=== PATIENT | female | born 1990 | race Caucasian/White ===

== ENCOUNTER 2022-09-14 22:24 | Observation (INO) ==
[2022-09-15] MEDS ORDERED: MoRPHine SULFATE 4 MG/ML 1 ML CARP\\VIAL IV STA (00:04)
[2022-09-15] MEDS ORDERED: ONDANSETRON INJ 2 MG/ML 2 ML VIAL IV STA (00:04)
[2022-09-15] MEDS: MoRPHine SULFATE 4 MG/ML 1 ML CARP\\VIAL IV PRN ×5 (00:51→18:21)
[2022-09-15] MEDS ORDERED: diphenhydrAMINE 50 MG/ML VIAL IV PRN (00:58)
[2022-09-15] MEDS ORDERED: ONDANSETRON INJ 2 MG/ML 2 ML VIAL IV PRN ×2 (00:58→11:56)
[2022-09-15 00:59] LABS: Basophils # (auto) 0.03 K/uL (0-0.2); Basophils % (auto) 0.3 %; Eosinophils # (auto) 0.02 K/uL (0-0.50); Eosinophils % (auto) 0.2 %; Hematocrit (blood only) 41.2 % (37.0-47.0); Hemoglobin 13.9 g/dl (12.0-16.0); Immature Granulocytes # (auto) 0.03 K/uL (0.01-0.20); Immature Granulocytes % (auto) 0.3 %; Lymphocytes # (auto) 1.58 K/uL (1.2-3.4); Mean Corpuscular Hgb Conc 33.7 g/dL (32.0-36.0); Mean Platelet Volume 9.7 fL (9.4-12.4); Monocytes # (auto) 0.49 K/uL (0.11-0.59); Monocytes % (auto) 4.3 %; Neutrophils # (auto) 9.15 K/uL (1.40-6.50); Neutrophils % (auto) 80.9 %; Platelet Count 214 K/uL (130-400); RDW Coefficient of Variation 13.7 % (11.5-14.5); RDW Standard Deviation 42.7 fL (36.4-46.3); Red Blood Count 4.79 M/uL (4.20-5.40)
[2022-09-15] MEDS ORDERED: HYDROmorphone INJ 0.5 MG/0.5 ML SYR IV PRN (01:03)
[2022-09-15 01:05] LABS: Albumin Globulin Ratio 1.4 (0.9-2); Albumin Level 4.6 gm/dl (3.4-5.0); BUN Creatinine Ratio 11.6 (10-20); Bilirubin,Total 0.3 mg/dl (0.2-1.0); Calcium 9.3 mg/dl (8.5-10.1); Creatinine Clr Calc Pharmacy 89.5 ml/min; Est GFR (African American) 105.1 ml/min; Est GFR (Non-African American) 90.7 ml/min; Globulin 3.3 gm/dl (2.5-4.0); Potassium 3.9 mmol/L (3.5-5.1); Total Protein 7.9 gm/dl (6.0-8.3)
[2022-09-15] MEDS ORDERED: Patient's ALLERGY Info needs ENTERED STA (01:22)
[2022-09-15] MEDS ORDERED: LORazepam 2 MG/1 ML VIAL ONE (01:43)
[2022-09-15] MEDS ORDERED: LORazepam 2 MG/1 ML VIAL IV STA (02:03)
--- NOTE | 2022-09-15 02:11 | Emergency Department Note ---
History of Present Illness General Chief complaint: Ankle Pain Stated complaint: ankle pain Time Seen by Provider: 09/14/22 23:50 History of Present Illness Maximum Pain Intensity: 6 This is a 31-year-old female presenting to the emergency department via EMS for evaluation of right ankle injury. The patient was at [facility], and was on a skateboard. The patient states that she was going up the incline of the ramp when the skateboard went out from under her. She fell awkwardly and twisted her foot as she hit the ground. She felt a crack sensation in her leg and was not able to bear weight. She does not have any blood or bleeding. Feeling is intact and she rates her discomfort a 6/10. Patient lives in [facility], and has not seen orthopedics in the past. She is usually healthy without chronic medical disease. She is not on blood thinners. No significant pain of the right knee or right hip. Allergies Allergy/AdvReac Type Severity Reaction Status Date / Time Penicillins AdvReac Rash Verified 09/15/22 03:16 Past Med/Surg History Medical History No chronic diseases present Surgical History No significant past surgical history Social History Smoking Status: Never smoker Hx Alcohol Use: Yes Hx Substance Use: No Preferred Language: Armenian Communication Ability: Effective Databases Computer Consultant Required: No Beliefs That Will Affect Care: None Current Living Situation: Spouse and Family Current Living Situation Comment: , in laws, kids Other Information That Helps Us Care for You: No Feels Safe at Home: Yes Safety Concerns: Feels Safe At This Time Assistive Devices: None Review of Systems A total of 10 systems reviewed and were otherwise negative Physical Exam Vital Signs Vital Signs - 24 hr 09/14/22 22:08 Temperature 36.8 C Temperature Source Oral Pulse Rate 87 Respiratory Rate 18 Respiratory Effort / Characteristics Non-Labored Respiratory Depth Normal Blood Pressure 129/80 Blood Pressure Mean 96 Blood Pressure Position Sitting Pulse Oximetry 100 Oxygen Delivery Method Room Air Sepsis Recent Fever Within 48 Hours No Sepsis New/Unexplained Change in Mental Status N/A Sepsis Action Taken by Nursing No Action Required VITALS: Vitals are noted on the nurse's note and reviewed by myself. Vital signs stable. GENERAL: Well-developed, well-nourished, white female, who is quite upset and tearful. She appears quite uncomfortable. She is overall cooperative. HEAD: Normocephalic atraumatic. NECK: Supple without nuchal rigidity. No lymphadenopathy. No thyromegaly. Cervical spine is nontender. HEART: Regular rate and rhythm without murmurs gallops or rubs. LUNGS: Clear to auscultation bilaterally without wheezes, rales or rhonchi. No retractions or accessory muscle use. MUSCULOSKELETAL: No muscle atrophy, erythema, or edema noted. Limited range of motion to the right lower extremity secondary to patient's discomfort. No gross deformity, laceration, blood, or bleeding. Neurovascular status appears intact distally. Exam is somewhat limited throughout the lower leg. She does have reported sensation intact to the toes and is able to move the foot. NEURO: Patient was alert and oriented to person place and time. CN II through XII grossly intact. No focal neurological deficits. SKIN: The skin was without rashes, erythema, edema, or bruising. Capillary refill less than 2 seconds. Course Administered Medications Acetaminophen (Acetaminophen 500 Mg Tab) 1,000 mg PO Q8 [facility] Stop: 10/15/22 05:59 Last Admin: 09/15/22 13:17 Dose: Not Given Documented By: Admin: 09/15/22 06:18 Dose: 1,000 mg Documented By: DIETER Ascorbic Acid (Ascorbic Acid 500 Mg Tab) 500 mg PO BIDM [facility] Stop: 10/15/22 16:59 Last Admin: 09/15/22 17:27 Dose: Not Given Documented By: WALLY Aspirin (Aspirin 325 Mg Ectab) 325 mg PO DAILY [facility] Stop: 10/15/22 17:14 Last Admin: 09/15/22 17:30 Dose: Not Given Documented By: WALLY Diazepam (Diazepam 2 Mg Tablet) 2 mg PO BID PRN PRN Reason: Muscle Spasm Stop: 10/15/22 01:02 Last Admin: 09/15/22 07:17 Dose: 2 mg Documented By: DIETER Sodium Chloride (Nss 1000ml) 1,000 mls @ 100 mls/hr IV .Q10H [facility] Stop: 09/16/22 06:00 Last Admin: 09/15/22 16:49 Dose: 100 mls/hr Documented By: WALLY Ketorolac Tromethamine (Ketorolac Tromethamine 15 Mg/Ml Vial) 15 mg IV Q6H NGOZI Stop: 09/16/22 12:01 Last Admin: 09/15/22 17:50 Dose: 15 mg Documented By: WALLY Morphine Sulfate (Morphine Sulfate 4 Mg/Ml 1 Ml Carp\Vial) 4 mg IV Q3H PRN PRN Reason: Pain Stop: 09/29/22 06:46 Last Admin: 09/15/22 18:21 Dose: 4 mg Documented By: Admin: 09/15/22 10:11 Dose: 4 mg Documented By: WALLY Oxycodone HCl (Oxycodone Hcl Ir 5 Mg Tab (Immediate Release)) 10 mg PO Q4H PRN PRN Reason: SEVERE Pain (7,8,9,10) Stop: 09/29/22 01:02 Last Admin: 09/15/22 20:17 Dose: 10 mg Documented By: Admin: 09/15/22 08:25 Dose: 10 mg Documented By: Admin: 09/15/22 03:57 Dose: 10 mg Documented By: DIETER Discontinued Medications Fentanyl Citrate (Fentanyl Citrate 100 Mcg/2 Ml Vial) 25 mcg IV Q5M PRN PRN Reason: PACU Use Only-Pain Stop: 09/15/22 19:56 Last Admin: 09/15/22 16:06 Dose: 25 mcg Documented By: QUINTON Hydromorphone HCl (Hydromorphone Inj 0.5 Mg/0.5 Ml Syr) 0.5 mg IV Q3H PRN PRN Reason: Pain (6,7,8,9,10) Stop: 09/29/22 01:02 Last Admin: 09/15/22 06:15 Dose: 0.5 mg Documented By: Admin: 09/15/22 03:36 Dose: 0.5 mg Documented By: DIETER Cefazolin Sodium (Ancef 2000mg) 2,000 mg in 15 mls @ 3.75 mls/min IV PREOP NGOZI; Protocol Stop: 09/15/22 11:03 Last Admin: 09/15/22 11:59 Dose: 3.75 mls/min Documented By: FLORES Promethazine HCl 12.5 mg/ (Sodium Chloride) 50.5 mls @ 204 mls/hr IV ONCE PRN PRN Reason: PACU Use Only-Nausea/Vomiting Stop: 09/15/22 19:56 Last Infusion: 09/15/22 16:49 Dose: 0 mls/hr Documented By: Admin: 09/15/22 16:01 Dose: 204 mls/hr Documented By: QUINTON Lorazepam (Lorazepam 2 Mg/1 Ml Vial) Confirm Administered Dose 2 mg .ROUTE .STK- MED ONE Stop: 09/15/22 01:44 Last Admin: 09/15/22 01:40 Dose: 1 mg Documented By: MELY Lorazepam (Lorazepam 2 Mg/1 Ml Vial) 1 mg IV NOW STA Stop: 09/15/22 02:04 Last Admin: 09/15/22 02:23 Dose: Not Given Documented By: MELY Miscellaneous Information (Patient's Allergy Info Needs Entered) 1 each N/A ONE STA Stop: 09/15/22 01:23 Last Admin: 09/15/22 03:17 Dose: 1 each Documented By: DIETER Morphine Sulfate (Morphine Sulfate 4 Mg/Ml 1 Ml Carp\Vial) 4 mg IV NOW STA Stop: 09/15/22 00:05 Last Admin: 09/15/22 00:23 Dose: 4 mg Documented By: MELY Morphine Sulfate (Morphine Sulfate 4 Mg/Ml 1 Ml Carp\Vial) 4 mg IV Q15M PRN PRN Reason: Pain Stop: 09/29/22 00:35 Last Admin: 09/15/22 02:29 Dose: 4 mg Documented By: Admin: 09/15/22 01:38 Dose: 4 mg Documented By: Admin: 09/15/22 00:51 Dose: 4 mg Documented By: MELY Morphine Sulfate (Morphine Sulfate 4 Mg/Ml 1 Ml Carp\Vial) Confirm Administered Dose 4 mg .ROUTE .STK-MED ONE Stop: 09/15/22 07:17 Last Admin: 09/15/22 07:18 Dose: 4 mg Documented By: DIETER Ondansetron HCl (Ondansetron Inj 2 Mg/Ml 2 Ml Vial) 4 mg IV NOW STA Stop: 09/15/22 00:05 Last Admin: 09/15/22 00:23 Dose: 4 mg Documented By: MELY Promethazine HCl (Promethazine Hcl Inj 25 Mg/Ml 1 Ml Vial) Confirm Administered Dose 25 mg .ROUTE .STK-MED ONE Stop: 09/15/22 15:57 Last Admin: 09/15/22 16:48 Dose: Not Given Documented By: WALLY Sodium Chloride (Sodium Chloride 0.9% 50 Ml Bag) Confirm Administered Dose 50 ml .ROUTE .STK-MED ONE Stop: 09/15/22 15:57 Last Admin: 09/15/22 16:49 Dose: Not Given Documented By: WALLY Medical Decision Making Differential Diagnosis Differential diagnosis includes, but is not limited to: Sprain, strain, f racture, dislocation, subluxation, contusion, and others Laboratory Data 09/15/22 00:20 09/15/22 00:20 Lab Results 09/15/22 09/15/22 09/15/22 Range/Units 00:20 00:20 00:54 WBC 11.30 H (4.8-10.8) K/ul RBC 4.79 (4.20-5.40) M/uL Hgb 13.9 (12.0-16.0) g/dl Hct 41.2 (37.0-47.0) % MCV 86.0 (80.0-100.0) fL MCH 29.0 (25.0-34.0) pg MCHC 33.7 (32.0-36.0) g/dL RDW Std Deviation 42.7 (36.4-46.3) fL RDW Coeff of Markel 13.7 (11.5-14.5) % Plt Count 214 (130-400) K/uL MPV 9.7 (9.4-12.4) fL Immature Gran % (Auto) 0.3 % Neut % (Auto) 80.9 % Lymph % (Auto) 14.0 % [place] % (Auto) 4.3 % Eos % (Auto) 0.2 % Baso % (Auto) 0.3 % Neut # (Auto) 9.15 H (1.40-6.50) K/uL Lymph # (Auto) 1.58 (1.2-3.4) K/uL [place] # (Auto) 0.49 (0.11-0.59) K/uL Eos # (Auto) 0.02 (0-0.50) K/uL Baso # (Auto) 0.03 (0-0.2) K/uL Immature Gran # (Auto) 0.03 (0.01-0.20) K/uL Sodium 138 (136-145) mmol/L Potassium 3.9 (3.5-5.1) mmol/L Chloride 106 (98-107) mmol/L Carbon Dioxide 26 (21-32) mmol/L Anion Gap 6 (3-11) BUN 10 (6-23) mg/dl Creatinine 0.86 (0.6-1.2) mg/dl Est Cr Clr Drug Dosing 89.5 ml/min Est GFR ( Amer) 105.1 ml/min Est GFR (Non-Af Amer) 90.7 ml/min BUN/Creatinine Ratio 11.6 (10-20) Glucose 114 H (70-99(Fasting)) mg/dl Calcium 9.3 (8.5-10.1) mg/dl Total Bilirubin 0.3 (0.2-1.0) mg/dl AST 18 (13-39) U/L ALT 19 (7-52) U/L Alkaline Phosphatase 78 (34-104) U/L Total Protein 7.9 (6.0-8.3) gm/dl Albumin 4.6 (3.4-5.0) gm/dl Globulin 3.3 (2.5-4.0) gm/dl Albumin/Globulin Ratio 1.4 (0.9-2) SARS-CoV-2, RNA, NAAT NEGATIVE (NEGATIVE) Imaging Data Radiologist's Impression: Ankle X-Ray 09/14/22 23:23 XR ankle RT min 3V routine CLINICAL HISTORY: Right ankle pain. Injury. COMPARISON STUDY: None. FINDINGS: Slightly displaced fracture within the distal diaphysis of the right fibula. There is a displaced and comminuted rash involving the distal tibia with associated intra-articular extension. This involves the medial malleolus. No dislocation. The distal fracture fragments demonstrate up to 11 mm of lateral displacement as well as 6 mm of posterior displacement. Mild soft tissue swelling. IMPRESSION: Distal right tibial and fibular fractures as described above. ACT 112: Negative or not required by law. Electronically signed by: Adam Jensen M.D. 09/15/2022 9:45 AM Ankle X-Ray 09/15/22 00:00 FL ankle RT 2V CLINICAL HISTORY: RT DISTAL TIB/FIB FX COMPARISON STUDY: Right ankle radiographs September 14, [address] of the right ankle performed earlier today. FLUOROSCOPY TIME: 76 seconds. EXPOSURE DOSE: 2.17 mGy FLUOROSCOPIC IMAGES: 6 FINDINGS: Interval plate and screw fixation of the distal right tibial fracture is noted. Hardware is intact. Fracture alignment appears anatomic. There are no unexpected radiopaque foreign bodies. Distal diaphyseal fibular fracture is again noted. Talar dome is intact. IMPRESSION: Expected findings following open reduction and internal fixation of the right tibial fracture. ACT 112: Negative or not required by law. Electronically signed by: Harrison Nicole M.D. 09/15/2022 3:[address] 09/15/22 00:46 CT ankle RT wo con CLINICAL HISTORY: Distal tib/fib fx. Eval for surg. Fine cuts please COMPARISON STUDY: Right ankle radiographs September 14, 2022. TECHNIQUE: Axial images of the right ankle were obtained without IV contrast. Sagittal and coronal reconstructions were viewed. Automated exposure control was utilized for the study. A dose lowering technique was utilized adhering to the principles of ALARA. FINDINGS: Note is again made of an acute displaced oblique distal right tibial fracture. Fracture extends from the distal diaphysis to the tibial plafond and the base of the medial malleolus with intra-articular extension. No interarticular bone fragments are present. Proximal aspect of the fracture is displaced 1.4 cm. There is also an acute minimally displaced and comminuted distal diaphyseal fracture of the right fibula. No ankle mortise widening is identified. The talar dome is intact. No acute fracture within the right hindfoot is present. Mild soft tissue swelling is noted. IMPRESSION: 1. Acute oblique displaced distal right tibial fracture with intra-articular extension, as described above. No intra-articular bone fragments. 2. Acute minimally displaced and comminuted distal diaphyseal fracture of the right fibula. 3. No ankle mortise widening. ACT 112: Negative or not required by law. Electronically signed by: Harrison Nicole M.D. 09/15/2022 8:32 AM MDM Narrative Physical exam and history were performed. Nursing notes, EMR, and Medication List were personally reviewed. No social concerns were identified as barriers to patients care. Patient appears to have injured herself while skateboarding. The patient has significant amount of tenderness and is quite upset about her injury. IV access was established and labs were obtained. She was given IV fentanyl and x-rays were performed. Blood work was gathered. Patient's blood work is as above and was reviewed. She does not have a significantly elevated white blood cell count, gross anemia, bandemia, or significant electrolyte imbalance. Glucose is 114. Transaminases are not diagnostic. COVID is negative. X-ray was performed and reviewed by myself and radiology. She has a quite obvious fracture of the distal tibia and fibula. Case was discussed with the on-call orthopedic, Dr. Suárez, who was kind enough to review the images and provide advice. The patient will ultimately require surgical intervention for repair. She does not live in this area, and after di scussion with the patient, she does not feel that she will be able to get home to have this done where she lives. Dr. Suárez will bring the patient into the hospital for definitive management. CT was recommended and ordered to help determine her surgical course. Please see the orthopedic dictation for further patient course, plan, and disposition. The chart was completed utilizing [employer] Speech Voice Recognition Software. Grammatical errors, random word insertions, pronoun errors, and incomplete sentences are an occasional consequence of this system due to software limitations, ambient noise, and hardware issues. Any formal questions or concerns about the content, text, or information contained within the body of this dictation should be directly addressed to the provider for clarification. . Impression & Plan Fractured tibia and fibula, Fall from skateboard Discharge Plan Visit Data Chief Complaint: Ankle Pain Stated Complaint: ankle pain ED Provider: Ryne Nazario ED Midlevel Provider: Dimitry Gonzalez Discharge Problem: Fractured tibia and fibula, Fall from skateboard Patient Disposition: Admitted As Inpatient Discharge Instructions Interventions: ED Discharge Assessment Last Done: 09/15/22 02:44 : Fractured tibia and fibula Qualifiers: Encounter type: initial encounter Fracture type: closed Laterality: right Qualified Code(s): S82.201A - Unspecified fracture of shaft of right tibia, initial encounter for closed fracture Fall from skateboard Qualifiers: Encounter type: initial encounter Qualified Code(s): V00.131A - Fall from skateboard, initial encounter
[2022-09-15] MEDS: HYDROmorphone INJ 0.5 MG/0.5 ML SYR IV PRN ×2 (03:36→06:15)
[2022-09-15] MEDS: oxyCODONE HCL IR 5 MG TAB (IMMEDIATE RELEASE) PO PRN ×3 (03:57→20:17)
[2022-09-15] MEDS ORDERED: ceFAZolin 2000MG 2,000 MG/15 ML SYR IV SCH (06:00)
[2022-09-15] MEDS: ACETAMINOPHEN 500 MG TAB PO SCH ×3 (06:18→21:08)
[2022-09-15] MEDS ORDERED: MoRPHine SULFATE 4 MG/ML 1 ML CARP\\VIAL ONE (07:16)
[2022-09-15] MEDS: diazePAM 2 MG TABLET PO PRN ×2 (07:17→21:08)
--- NOTE | 2022-09-15 08:14 | History & Physical Report ---
Date of Service September 15, 2022 Assessment & Plan (1) Fractured tibia and fibula: 31-year-old female with a displaced distal tibia and fibula fracture from skateboarding injury. I reviewed the diagnosis, fracture pattern, and recommended treatment options. My recommendation was for surgical stabilization. I reviewed the risks and benefit of surgery in detail. The risks we discussed include but are not limited to infection, neurovascular injury, arthrofibrosis of the ankle joint, need for repeat or revision surgery, symptomatic hardware, malunion, nonunion, pain syndromes, blood clots, blood loss, and complications related to anesthesia. She asked appropriate questions, demonstrated good understanding, and wants to proceed with surgery. Informed consent will be documented in the preoperative area. She should remain an inpatient until pain is managed and she mobilized with PT/OT following surgery. We will plan for open reduction internal fixation distal tibia and fibula today. History of Present Illness Chief Complaint: Right ankle injury Primary Care Provider: NO PCP 31-year-old otherwise healthy and active female was skateboarding on a ramp at [place], when she fell and actually loaded her right ankle. She said she felt a pop and give way. She had immediate pain, deformity, and inability to ambulate. She was brought by EMS to the [facility] emergency room. She denied any numbness or tingling. There were no open injuries. She was from [facility], and we offered to splint and allow her to go as an outpatient. Pain prevented that plan. I offered admission for surgical stabilization, and she was agreeable She reports no prior right ankle injuries. She wants to return to an active lifestyle. No history of blood clots. She had significant pain overnight that was improved by adjusting parenteral pain medications. Allergies Allergy/AdvReac Type Severity Reaction Status Date / Time Penicillins AdvReac Rash Verified 09/15/22 03:16 Past Med/Surg History Medical History No chronic diseases present Surgical History No significant past surgical history Social History Smoking Status: Never smoker Hx Alcohol Use: Yes Hx Substance Use: No Preferred Language: French Communication Ability: Effective Plate Colorer Required: No Beliefs That Will Affect Care: None Current Living Situation: Spouse and Family Current Living Situation Comment: , in laws, kids Other Information That Helps Us Care for You: No Feels Safe at Home: Yes Safety Concerns: Feels Safe At This Time Assistive Devices: None Review of Systems All systems reviewed & are unremarkable except as noted in HPI & below. Physical Exam Right lower extremity: Appropriately splinted. Elevated. Actively ranges her toes. Sensation is grossly intact to light touch. Well-perfused digits. The ER report was of no skin compromise or open lacerations. Constitutional WD/WN, vitals as above Respiratory normal respiratory effort; no respiratory distress Cardiovascular Extremities: normal capillary refill; no edema Chest (Breasts) Chest: normal inspection of chest Skin no rashes, warm and dry Psychiatric A+Ox3, euthymic affect Results & Data Results & Data Laboratory Results H & H 09/15/22 Range/Units 00:20 Hgb 13.9 (12.0-16.0) g/dl Hct 41.2 (37.0-47.0) % Diagnostic Findings Radiographs and CT scan reviewed. Long spiral oblique fracture of the distal tibia with a diaphyseal fracture of the fibula this minimally displaced. Unstable pattern. PG Care Time/CCT Total # of Minutes Spent Total Time Spent with Patient: Total time spent is greater than 50% in coordination of care (as documented) at patient's floor/unit and/or counseling patient: Coding Level of Care Code 27595 INT INP/OBS CARE 3/75MIN (57 - DECISION FOR SURGERY) Diagnoses Fractured tibia and fibula S82.201A; S82.401A Encounter type: initial encounter Fracture type: closed Laterality: right (1) Fractured tibia and fibula Encounter type: initial encounter Fracture type: closed Laterality: right Qualified Code(s): S82.201A - Unspecified fracture of shaft of right tibia, initial encounter for closed fracture; S82.401A - Unspecified fracture of shaft of right fibula, initial encounter for closed fracture
--- NOTE | 2022-09-15 08:34 | CT Scan Report ---
CT ankle RT wo con CLINICAL HISTORY: Distal tib/fib fx. Eval for surg. Fine cuts please COMPARISON STUDY: Right ankle radiographs September 14, 2022. TECHNIQUE: Axial images of the right ankle were obtained without IV contrast. Sagittal and coronal re constructions were viewed. Automated exposure control was utilized for the study. A dose lowering te chnique was utilized adhering to the principles of ALARA. FINDINGS: Note is again made of an acute displaced oblique distal right tibial fracture. Fracture ext ends from the distal diaphysis to the tibial plafond and the base of the medial malleolus with intra- articular extension. No interarticular bone fragments are present. Proximal aspect of the fracture is displaced 1.4 cm. There is also an acute minimally displaced and comminuted distal diaphyseal fractu re of the right fibula. No ankle mortise widening is identified. The talar dome is intact. No acute f racture within the right hindfoot is present. Mild soft tissue swelling is noted. IMPRESSION: 1. Acute oblique displaced distal right tibial fracture with intra-articular extension, as described above. No intra-articular bone fragments. 2. Acute minimally displaced and comminuted distal diaphyseal fracture of the right fibula. 3. No ankle mortise widening. ACT 112: Negative or not required by law. Electronically signed by: Harrison Nicole M.D. 09/15/2022 8:32 AM
--- NOTE | 2022-09-15 09:47 | XRay Report ---
XR ankle RT min 3V routine CLINICAL HISTORY: Right ankle pain. Injury. COMPARISON STUDY: None. FINDINGS: Slightly displaced fracture within the distal diaphysis of the right fibula. There is a dis placed and comminuted rash involving the distal tibia with associated intra-articular extension. This involves the medial malleolus. No dislocation. The distal fracture fragments demonstrate up to 11 mm of lateral displacement as well as 6 mm of posterior displacement. Mild soft tissue swelling. IMPRESSION: Distal right tibial and fibular fractures as described above. ACT 112: Negative or not required by law. Electronically signed by: Adam Jensen M.D. 09/15/2022 9:45 AM
--- NOTE | 2022-09-15 10:04 | Anesthesiology Consultation ---
Date of Service September 15, 2022 Assessment & Plan Chart Review Chart Review: Acceptable Risk for Surgery and Patient NOT seen in Pre Admission Testing Consults Requested none ASA ASA2 Proposed Anesthesia Anesthesia Type: General Regional Regional Laterality: Right Site: Popliteal History Surgery Operation Date: 09/15/22 07:15 Proposed Procedures p Open Reduction Internal Fixation Ankle - Stefan Suárez MD Height/Weight Height: 5 ft 4 in Weight: 82.1 kg Allergies Allergy/AdvReac Type Severity Reaction Status Date / Time Penicillins AdvReac Rash Verified 09/15/22 03:16 Medications Active Medications Generic Name Dose Route Start Last Admin Trade Name Freq PRN Reason Stop Dose Admin Acetaminophen 1,000 mg 09/15/22 06:00 09/15/22 06:18 Acetaminophen 500 Mg Tab PO 10/15/22 05:59 1,000 mg Q8 [id number] Administration Diazepam 2 mg 09/15/22 01:03 09/15/22 07:17 Diazepam 2 Mg Tablet PO 10/15/22 01:02 2 mg BID PRN Administration Muscle Spasm Oxycodone HCl 10 mg 09/15/22 01:03 09/15/22 08:25 Oxycodone Hcl Ir 5 Mg Tab (Immediate Release) PO 09/29/22 01:02 10 mg Q4H PRN Administration SEVERE Pain (7,8,9,10) Past Medical History Medical History No chronic diseases present obesity Exercise / Class Metabolic Activity II 4-5 Yardwork/Stairs/Walk up hill Past Surgical History Surgical History No significant past surgical history Past Anesthesia History No Hx of Anesthesia Complications and No Family Hx of Anesthesia Complications History of PONV No Hx of PONV and No Hx of Motion Sickness Social History Smoking Status: Never smoker Hx Alcohol Use: Yes alcohol intake frequency: holidays/special occasions only Hx Substance Use: No substance use type: does not use Physical Exam Vital Signs Last Vital Signs Temp 36.6 C 09/15/22 07:36 Pulse 89 09/15/22 07:36 Resp 18 09/15/22 07:36 BP 105/69 09/15/22 07:36 Pulse Ox 95 09/15/22 07:36 O2 Del Method 09/15/22 07:36 Testing Laboratory Results 09/15/22 00:20 09/15/22 00:20
[2022-09-15] MEDS ORDERED: PROPOFOL IV EMULSION 10 MG/ML 20 ML VIAL IV ONE (11:12)
[2022-09-15] MEDS ORDERED: fentaNYL citrate 100 MCG/2 ML VIAL ONE ×2 (11:12→12:36)
[2022-09-15] MEDS ORDERED: DEXAMETHASONE SOD INJ 4 MG/ML VIAL ONE ×2 (11:12→11:20)
[2022-09-15] MEDS ORDERED: ONDANSETRON INJ 2 MG/ML 2 ML VIAL ONE ×2 (11:12→14:48)
[2022-09-15] MEDS ORDERED: MIDAZOLAM HCL 1 MG/ML 2ML VIAL ONE ×2 (11:12)
[2022-09-15] MEDS ORDERED: LIDOCAINE 2% MPF LOCAL 5 ML VIAL INFIL ONE (11:12)
[2022-09-15] MEDS ORDERED: EPINEPHrine INJ 1 MG/ML AMP ONE (11:20)
[2022-09-15] MEDS ORDERED: BUPIVACAINE 0.25% 30 ML VIAL ONE (11:21)
--- NOTE | 2022-09-15 11:37 | Communication Note ---
Date of Service: September 15, 2022 patient is currently menstruating
[2022-09-15] MEDS ORDERED: fentaNYL citrate 100 MCG/2 ML VIAL IV PRN (11:56)
[2022-09-15] MEDS ORDERED: FLUMAZENIL 0.1 MG/1 ML 10 ML VIAL IV PRN (11:56)
[2022-09-15] MEDS ORDERED: PROMETHAZINE HCL 12.5 MG in SODIUM CHLORIDE 0.9% 50 ML IV PRN (11:56)
[2022-09-15] MEDS ORDERED: ATROPINE SULFATE 0.1 MG/ML 10ML SYR IV PRN (11:56)
[2022-09-15] MEDS ORDERED: HYDROmorphone INJ 1 MG/ML SYRINGE IV PRN (11:56)
[2022-09-15] MEDS ORDERED: ePHEDrine sulfate 50 MG/ML AMP IV PRN (11:56)
[2022-09-15] MEDS ORDERED: NALOXONE HCL 0.4 MG/1 ML VIAL/CARP IV PRN (11:56)
[2022-09-15] MEDS ORDERED: ceFAZolin 330 MG/ML 1 GM VIAL ONE (12:24)
--- NOTE | 2022-09-15 15:19 | Fluoroscopy Report ---
FL ankle RT 2V CLINICAL HISTORY: RT DISTAL TIB/FIB FX COMPARISON STUDY: Right ankle radiographs September 14, [address] of the right ankle performed sabas ier today. FLUOROSCOPY TIME: 76 seconds. EXPOSURE DOSE: 2.17 mGy FLUOROSCOPIC IMAGES: 6 FINDINGS: Interval plate and screw fixation of the distal right tibial fracture is noted. Hardware is intact. Fracture alignment appears anatomic. There are no unexpected radiopaque foreign bodies. Dist al diaphyseal fibular fracture is again noted. Talar dome is intact. IMPRESSION: Expected findings following open reduction and internal fixation of the right tibial fra cture. ACT 112: Negative or not required by law. Electronically signed by: Harrison Nicole M.D. 09/15/2022 3:17 PM
[2022-09-15] MEDS ORDERED: PROMETHAZINE HCL INJ 25 MG/ML 1 ML VIAL ONE (15:56)
[2022-09-15] MEDS ORDERED: SODIUM CHLORIDE 0.9% 50 ML BAG ONE (15:56)
--- NOTE | 2022-09-15 15:59 | Post Operative Brief Note ---
PG Immediate Post Op with CF Date of Surgery September 15, 2022 Pre & Post Diagnosis Operation Date: 09/15/22 07:15 Pre-Op Diagnosis: Fractured right tibia and fibula Post-Op Diagnosis: Fractured right tibia and fibula I identified the patient and participated in the time-out.: Yes Procedure Operation Date: 09/15/22 07:15 Actual Procedures p Right Distal Tibia Open Reduction Internal Fixation(Right) - Stefan Suárez MD Surgeon Stefan Suárez MD Communications Billing Analyst Deon Calderon PA-C Estimated Blood Loss 50 Findings Consistent with Post-Op Diagnosis Specimens Specimen Description: None per surgeon
[2022-09-15] MEDS ORDERED: bisacodyL 10 MG SUPP PR PRN (16:46)
[2022-09-15] MEDS ORDERED: METOCLOPRAMIDE HCL INJ 5 MG/ML 2 ML VIAL IV PRN (16:46)
[2022-09-15] MEDS ORDERED: MAGNESIUM HYDROXIDE SUSP 30 ML UDC PO PRN (16:46)
[2022-09-15] MEDS ORDERED: SODIUM CHLORIDE 0.9% 1000ML 1,000 ML IV SCH (16:46)
--- NOTE | 2022-09-15 16:46 | Operative Report ---
PG Post Operative Report Pre & Post Diagnosis Operation Date: 09/15/22 07:15 Pre-Op Diagnosis: Fractured right tibia and fibula Post-Op Diagnosis: Fractured right tibia and fibula I identified the patient and participated in the time-out.: Yes Procedure Operation Date: 09/15/22 07:15 Actual Procedures p Right Distal Tibia Open Reduction Internal Fixation(Right) - Stefan Suárez MD Surgeon Stefan Suárez MD Library Assistant Deon Calderon PA-C Estimated Blood Loss 50 Findings See Below Long oblique distal tibia fracture with minimal comminution stabilized with three 3.5 mm interfragmentary compression screws along the main fragment and a neutralizing Synthes 3.5 mm LC-DCP anterolateral distal tibial locking plate15 hole, using both locking and cortical screws. In addition, 2 separate medial to lateral Synthes cannulated 4.0 mm partially-threaded screws were placed across the plafond to stabilize a vertically oriented splint that propagated to the joint. Specimens None Anesthesia Type General Regional Complications none Disposition Accompanied Patient To Recovery: No Disposition: Recovery Room Indications 31-year-old otherwise healthy and active female sustained a fall and twisting ankle injury while riding a skateboard on a ramp, resulting immediate pain and inability weight-bear. She was brought to the [facility] emergency room where a distal tibia and concomitant fibular fracture was diagnosed. Orthopedics was consulted for definitive management. We discussed the diagnosis, prognosis and treatment options. My recommendation was surgical stabilization. She desired to have that done here versus going home to [facility] in a splint. She was kept in-house overnight for pain control and taken to the operating today. In the preoperative holding area, I reviewed the risks and benefits surgery in detail, as outlined in her H&P. Informed consent was documented. Description of Procedure On the day of surgery, the patient was greeted in the preoperative holding area. The informed consent was reviewed and confirmed by myself and the patient. The patient identified the surgical site and was marked by me. The patient was then turned over to anesthesia. Anesthesia performed a regional anesthetic block with excellent effect. Patient was then taken to the operating place upon the OR table and anesthesia was induced. The airway was secured. The patient was taken to the operating room, and placed upon the OR table. Anesthesia was induced, and the airway was secured. A nonsterile tourniquet was placed high in the thigh. The right limb was positioned using the trapezoidal bone foam elevator and an ipsilateral hip bump. All other bony prominences were well-padded. The operative extremities then prepped and draped in the usual sterile fashion for ankle surgery. Surgical timeout was called by the circulating nurse, and verified all present. Antibiotics had been infused, and the equipment was available and functional. An anterior lateral approach to the distal tibia was planned out. We left room for medial malleolus and lateral malleoli approach if necessary. The Esmarch bandage was used to exsanguinate the extremity, and the tourniquet was inflated to 250 mmHg. Anterolateral approach was carried out to about 7 cm above the joint line. Careful subcutaneous dissection was carried out, and we found the superficial peroneal nerve crossing the wound bed. It was isolated and protected. The distal retinaculum was then opened exposing the distal tendons. The anterior compartment was then retracted medially to expose the distal tibia. The joint was identified, and the fracture hematoma was evacuated. There was some cortical keys with minimal comminution distally. The soft tissue envelope was expanded proximally to allow visualization as far proximal as possible. The anterior fascia was released under direct visualization. We then used a lobster claw type reduction clamp distally. We achieved provisional reduction using separate clamps. Fluoroscopy was used to evaluate. The proximal side of the distal fragment was still kicked off on fluoroscopy. For that reason I made a counterincision more proximally to access that part of the periosteum. This was performed in line with the original incision. Soft tissue dissection was carried out carefully. The muscle fascia was opened to allow access to the lateral side of the tibia. I was able to visualize the proximal end of the posterior lateral fragment spike. Soft tissue was cleared out of the zone and a clamp was placed here to reduce that. We then directed attention distally to the reduction. Inline traction and external rotation and manipulation with a [place] and a fracture reduction clamp gained near-anatomic alignment. This was studied under fluoroscopy. There was a good reduction. I moved onto interfragmentary fixation with multiple 3.5 mm bicortical interfragmentary screws using lag by technique. This was done 1 distally 8 AP, slightly more proximal slightly anterior to posterior, and a percutaneously placed 1 anteromedial to posterolateral. There is gain control the fracture well. I then moved to the medial malleolus. A 3 cm incision was made. Soft tissue dissection was carried out carefully to the periosteum. Here, I used cannulated screws to stabilize the vertical fracture line entering the medial shoulder of the plafond. It was perfectly reduced on fluoroscopy so a clamp was applied for compression. I placed 1 anterior screw from medial to lateral aiding for the T[place]aux region. I placed a second 1 more posteriorly just anterior to the posterior tibial tendon directed to the posterior lateral corner just behind the syndesmotic region. These were overdrilled using the cannulated drill bit. Long thread 4.0 millimeter screws with washers were placed for compression of this plafond propagation. With the fracture stabilized in an interfragmentary manner, we moved for neutralization plate. The fracture and plate were sized using fluoroscopy. We need to the largest plate to gain enough proximal fixation. This was a 15 all Synthes anterolateral distal tibia plate. It was directed onto bone using fluoroscopy for guidance. It was treated proximately by about a centimeter to capture the anterior fragment in a buttress fashion. A nonlocking cortical screw was placed from anterior to posterior in the distal row. This sucked the plate down to bone well and compressed the fracture further. The far medial hole of the distal row contacted some of our plafond screws, so a short locking screw was left in place here. The remainder of the 2 other distal row screw holes were used with bicortical locking screws. I then placed some nonlocking screws at the turn of the plate in the metaphyseal region to reduce the plate to bone. The nonlocking screws did displace the most proximal tip of the plate to the posterior aspect of the tibia, but there remained enough bone for purchase and her most proximal screws. The central portion of the fracture zone was then fixed using nonlocking screws through the original wound. This fixed the central portion of the vertical limb of the plate down to bone well and further stabilize the fracture. The remaining objective was the most proximal screws. The incision was extended up, and soft tissue dissection was carried out carefully once again. Muscle fascia was opened up. The interval between tibialis anterior and the peroneal group was developed to allow access to the plate. Soft tissues were carefully and bluntly retracted to visualize the most proximal screw holes. I used a nonlocking screw first to reduce the plate to bone. 2 additional locking screws were placed in the most proximal holes. Unfortunately the most proximal hole was slightly posterior and it was only unicondylar. For that reason I took out the original screw and placed a short locking screw. A nonlocking cortical screw was then placed in the next available hole at the fourth most proximal position. This completed our fixation. Final fluoroscopic views were obtained. The fracture appeared to be in near- anatomic alignment. The fibula was well reduced, and the fracture could not be identified on fluoroscopy. For that reason, we opted to to not internally fix the fibula and spare the leg an additional incision. The wounds were thoroughly irrigated with plentiful normal saline. The tourniquet had been left down at 2 hours at 250 mmHg. The wound bed adequate hemostasis. The deep fascial and subcutaneous fat layers were approximated using #1 Vicryl stitches. Another layer of 0 Vicryl stitches incorporated the tissue up into the deep dermis. 2-0 Vicryl stitches used in the dermis, followed by 3-0 nylon stitches in a vertical mattress fashion. The wounds were dressed with sterile Xeroform, sterile gauze, ABDs, and sterile Webril. Abundant Webril padding was applied and a posterior and stirrup splint was applied using Ortho-Glass. The patient tolerated this procedure well, was extubated in the operating without complication, and transported to the recovery area in stable condition. Disposition: The patient will remain as an inpatient for adequate pain control, completion of her 24-hour antibiotic prophylaxis, and and initiation of therapy. Routine postoperative pain medications will be used. DVT prophylaxis will be aspirin therapy starting on postoperative day 1. She will be discharged to the care of her family and return to [facility] for further recovery. I will see her back here in [place] at 2 weeks postop for routine postoperative radiographs and a wound check. The splint should remain in place. She should be nonweightbearing to the right lower extremity until further evaluation. Physician assistant to the vice president attestation: Deon Calderon PA-C was present and scrubbed for the duration of the case. He was essential to prepping/draping, patient positioning, retraction, and assistance with wound closure. Skilled assistance was critical to assist with reduction maneuvers and hardware placement. I attest to the content of the Intraoperative Record and any orders documented therein. Any exceptions are noted below.
[2022-09-15] MEDS: ASCORBIC ACID 500 MG TAB PO SCH (17:27)
[2022-09-15] MEDS: ASPIRIN 325 MG ECTAB PO SCH (17:30)
[2022-09-15] MEDS: KETOROLAC TROMETHAMINE 15 MG/ML VIAL IV SCH ×2 (17:50→23:33)
--- NOTE | 2022-09-15 17:53 | Anesthesiology Progress Note ---
Date of Service September 15, 2022 Anesthesia Post Procedure Vital Signs Vital Signs: Temp Pulse Pulse Pulse Pulse Resp BP 09/15/22 17:16 37.2 C 94 H 14 09/15/22 16:45 37.3 C 100 H 14 09/15/22 16:15 36.4 C L 100 H 12 09/15/22 16:05 97 H 14 09/15/22 15:55 99 H 14 09/15/22 15:45 89 12 09/15/22 15:38 37.2 C 96 H 14 09/15/22 07:36 36.6 C 89 18 09/15/22 03:00 36.7 C 97 H 20 09/15/22 02:00 105 H 18 09/14/22 22:08 36.8 C 87 18 129/80 BP Pulse Ox O2 Del Method O2 Flow Rate 09/15/22 17:16 111/74 99 Nasal Cannula 2 09/15/22 16:45 113/74 97 Nasal Cannula 2 09/15/22 16:15 118/64 97 Nasal Cannula 2 09/15/22 16:05 116/59 L 93 Room Air 09/15/22 15:55 113/68 98 Room Air 09/15/22 15:45 121/67 98 Oxymask 4 09/15/22 15:38 121/67 98 Oxymask 7 09/15/22 07:36 105/69 95 Room Air 09/15/22 03:00 128/79 Room Air 09/15/22 02:00 115/78 97 09/14/22 22:08 100 Room Air Pain Intensity Right Leg: Pain Intensity: 5 Transfer of Care Handoff Completed per policy Notes Mental Status: alert / awake / arousable Patient Amnestic to Procedure: Yes Nausea / Vomiting: adequately controlled Pain: adequately controlled Airway Patency, RR, SpO2: stable & adequate BP & HR: stable & adequate Hydration State: stable & adequate Anesthetic Complications: no major complications apparent
--- NOTE | 2022-09-15 18:35 | XRay Report ---
XR tibia fibula RT 2V CLINICAL HISTORY: postop in pacu. Right ankle fracture. COMPARISON STUDY: Right ankle 09/14/2022. FINDINGS: Status post internal fixation of the distal tibial fracture with a lateral cortical plate t ransfixed with screws. The hardware is intact. The alignment is anatomic. Reduction of the distal fib ular fracture which also demonstrates near-anatomic alignment. Overlying splint material obscures fin e bony detail IMPRESSION: Status post internal fixation of the distal right tibial/fibular fractures. ACT 112: Negative or not required by law. Electronically signed by: Adam Jensen M.D. 09/15/2022 6:33 PM
[2022-09-15] MEDS: SENNA 8.6 MG TAB PO SCH (21:09)
[2022-09-15] MEDS: DOCUSATE SODIUM 100 MG CAP PO SCH (21:10)
[2022-09-15] MEDS: ceFAZolin 2000MG 2,000 MG/15 ML SYR IV SCH (23:33)
[2022-09-16] MEDS: MoRPHine SULFATE 4 MG/ML 1 ML CARP\\VIAL IV PRN ×5 (00:23→20:28)
[2022-09-16] MEDS: oxyCODONE HCL IR 5 MG TAB (IMMEDIATE RELEASE) PO PRN ×5 (05:40→22:06)
[2022-09-16] MEDS: ACETAMINOPHEN 500 MG TAB PO SCH ×3 (05:41→20:29)
[2022-09-16] MEDS: ceFAZolin 2000MG 2,000 MG/15 ML SYR IV SCH (05:43)
[2022-09-16] MEDS: KETOROLAC TROMETHAMINE 15 MG/ML VIAL IV SCH ×2 (05:43→11:34)
[2022-09-16] MEDS: ASCORBIC ACID 500 MG TAB PO SCH ×2 (08:54→16:24)
[2022-09-16] MEDS: MULTIVITAMIN TAB PO SCH (08:54)
[2022-09-16] MEDS: ASPIRIN 325 MG ECTAB PO SCH (08:54)
[2022-09-16] MEDS: DOCUSATE SODIUM 100 MG CAP PO SCH ×2 (08:54→20:30)
--- NOTE | 2022-09-16 08:56 | Orthopedic Progress Note ---
Date of Service September 16, 2022 Assessment & Plan (1) History of open reduction and internal fixation (ORIF) procedure: (2) Fractured tibia and fibula: Plan POD1 ORIF right tibia. Making progress as expected. Remains inpatient for pain control and mobilization. - Complete 24-hour antibiotic prophylaxis today - DVT prophylaxis equals aspirin and early mobilization - Activity: Nonweightbearing to RLE. - Pain: attempt to wean to oral pain regimen today - PT/OT consults for mobilization Dispo: Will be discharged when stable on oral pain medicines. Expect the block to wear off today at some point. Needs gait training for nonweightbearing status. Expect to be able to discharge as early as today. She will require follow-up at 2 weeks for splint takedown, suture removal, and repeat x-rays. She is from [place], [place]. We can try to establish orthopedic care there o r she can return to our clinic for continuing care. Subjective Reports that she has had some intermittent pain but the block is still in effect. She is currently comfortable with her positioning. She was able to tolerate some food. Still having trouble urinating and required straight cath. She was able to urinate some but not empty her bladder. Review of Systems All systems reviewed & are unremarkable except as noted in HPI & below. Physical Exam RLE: Splint and dressing are clean and dry and intact. Dense block remains with no motor or sensation to the toes. The toes are well-perfused. The limb is suboptimally elevated but she is comfortable and not wanting to change. Constitutional WD/WN, vitals as above no acute distress and not intoxicated appearing Respiratory normal respiratory effort; no labored breathing Cardiovascular Extremities: normal capillary refill Results & Data Results & Data Laboratory Results Vitals are stable no labs indicated Diagnostic Findings . PG Care Time/CCT Total # of Minutes Spent Total Time Spent with Patient: Total time spent is greater than 50% in coordination of care (as documented) at patient's floor/unit and/or counseling patient: Coding Level of Care Code 20526 Post Operative Follow-Up Diagnoses History of open reduction and internal fixation (ORIF) procedure Z98.890 Fractured tibia and fibula S82.201A; S82.401A Encounter type: initial encounter Fracture type: closed Laterality: right (1) Fractured tibia and fibula Encounter type: initial encounter Fracture type: closed Laterality: right Qualified Code(s): S82.201A - Unspecified fracture of shaft of right tibia, initial encounter for closed fracture; S82.401A - Unspecified fracture of shaft of right fibula, initial encounter for closed fracture
[2022-09-16] MEDS: SENNA 8.6 MG TAB PO SCH (20:29)
[2022-09-17] MEDS: MoRPHine SULFATE 4 MG/ML 1 ML CARP\\VIAL IV PRN ×4 (01:12→23:37)
[2022-09-17] MEDS: oxyCODONE HCL IR 5 MG TAB (IMMEDIATE RELEASE) PO PRN ×4 (05:32→20:02)
[2022-09-17] MEDS: ACETAMINOPHEN 500 MG TAB PO SCH ×3 (05:33→21:59)
[2022-09-17] MEDS: ASPIRIN 325 MG ECTAB PO SCH (08:19)
[2022-09-17] MEDS: MULTIVITAMIN TAB PO SCH (08:19)
[2022-09-17] MEDS: DOCUSATE SODIUM 100 MG CAP PO SCH ×2 (08:19→20:04)
[2022-09-17] MEDS: ASCORBIC ACID 500 MG TAB PO SCH ×2 (08:19→16:06)
--- NOTE | 2022-09-17 11:02 | Orthopedic Progress Note ---
Date of Service September 17, 2022 Assessment & Plan (1) History of open reduction and internal fixation (ORIF) procedure: (2) Fractured tibia and fibula: Plan POD2 ORIF right tibia. Making progress as expected. Remains inpatient for pain control and mobilization. - DVT prophylaxis equals aspirin and early mobilization - Activity: Nonweightbearing to RLE. OK for knee scooter/crutch. - Pain: improving, attempt oral regimen today. - PT/OT: stairs, dispo planning/teaching Dispo: Will be discharged when stable on oral pain medicines. Expect to be able to discharge as early as today. She will require follow-up at 2 weeks for splint takedown, suture removal, and repeat x-rays. She is from [place], [place]. We can try to establish orthopedic care there or she can return to our clinic for continuing care. Subjective Pain is improving. Still required some parenteral morphine. Difficult to lift leg for mobilization. Burning pain experienced along medial side. Waiting for PT today. Review of Systems All systems reviewed & are unremarkable except as noted in HPI & below. Physical Exam RLE: +active toe flex/ex/abduction. Sensation intact to light touch in all ordoñez but slightly diminished on dorsal toes, as expected. Splint c/d/i Constitutional WD/WN, vitals as above no acute distress and not intoxicated appearing Respiratory normal respiratory effort; no labored breathing Cardiovascular Extremities: normal capillary refill Results & Data Results & Data Laboratory Results . Diagnostic Findings . PG Care Time/CCT Total # of Minutes Spent Total Time Spent with Patient: Total time spent is greater than 50% in coordination of care (as documented) at patient's floor/unit and/or counseling patient: Coding Level of Care Code 03857 Post Operative Follow-Up Diagnoses History of open reduction and internal fixation (ORIF) procedure Z98.890 Fractured tibia and fibula S82.201A; S82.401A Encounter type: initial encounter Fracture type: closed Laterality: right (1) Fractured tibia and fibula Encounter type: initial encounter Fracture type: closed Laterality: right Qualified Code(s): S82.201A - Unspecified fracture of shaft of right tibia, initial encounter for closed fracture; S82.401A - Unspecified fracture of shaft of right fibula, initial encounter for closed fracture
--- NOTE | 2022-09-17 16:08 | Discharge Summary ---
Date of Service September 17, 2022 Admission HPI (Per Admitting) 31-year-old otherwise healthy and active female was skateboarding on a ramp at [place], when she fell and actually loaded her right ankle. She said she felt a pop and give way. She had immediate pain, deformity, and inability to ambulate. She was brought by EMS to the [facility] emergency room. She denied any numbness or tingling. There were no open injuries. She was from [facility], and we offered to splint and allow her to go as an outpatient. Pain prevented that plan. I offered admission for surgical stabilization, and she was agreeable She reports no prior right ankle injuries. She wants to return to an active lifestyle. No history of blood clots. She had significant pain overnight that was improved by adjusting parenteral pain medications. Admission Exam (Per Admitting) Right lower extremity: Appropriately splinted. Elevated. Actively ranges her toes. Sensation is grossly intact to light touch. Well-perfused digits. The ER report was of no skin compromise or open lacerations. Principal Diagnosis Same as "Discharge Diagnosis" noted below under Discharge Instructions. Discharge Exam RLE: +active toe flex/ex/abduction. Sensation intact to light touch in all ordoñez but slightly diminished on dorsal toes, as expected. Splint c/d/i Discharge Data Procedures Performed Operation Date: 09/15/22 07:15 Actual Procedures p Right Distal Tibia and Fibula Open Reduction Internal Fixation(Right) - Stefan Suárez MD Ordered Studies 09/15/22 [place] ankle RT 2V Routine 09/15/22 00:46 CT ankle RT wo con Urgent 09/15/22 10:04 US - OR guided [facility] Stat Hospital Course (1) Fractured tibia and fibula: Encounter type: initial encounter Fracture type: closed Laterality: right Qualified Code(s): S82.201A - Unspecified fracture of shaft of right tibia, initial encounter for closed fracture; S82.401A - Unspecified fracture of shaft of right fibula, initial encounter for closed fracture (2) History of open reduction and internal fixation (ORIF) procedure: (3) Fall from skateboard: Encounter type: initial encounter Qualified Code(s): V00.131A - Fall from skateboard, initial encounter Plan Admitted date of injury in the emergency room for surgical stabilization. She underwent open reduction and internal fixation on 09/15/2022, which was uncomplicated. She remained an inpatient for PT/OT and IV pain management until postoperative day 3. She was found to be stable on oral pain regimen and without other complications. PG Care Time/CCT Total # of Minutes Spent Total Time Spent with Patient: Total time spent is greater than 50% in coordination of care (as documented) at patient's floor/unit and/or counseling patient: Discharge Plan Discharge Items Patient Disposition: Home - Self-Care Reason For Visit: RIGHT DISTAL TIBIA FRACTURE Discharge Diagnosis: Right distal tibia and fibula fractures Activity: Per Instructions section Non-emergency contact: Surgeon Call non-emergency contact if: you have any medication questions, your pain is not controlled and your temperature is above 101 Follow-up/Referrals: Stefan Suárez MD [Surgeon] - PCP,NEHEMIAH [Primary Care Provider] - Diet: Regular Addtl Attending Provider Instructions: Stefan Suárez M.D. [facility]opedic [facility] [address], [place] [address] POSTOPERATIVE INSTRUCTIONS ANKLE FRACTURES SPLINT/WOUND CARE: Leave your splint in place and keep the area clean and dry. Your splint will be taken down at your postop clinic visit. Do not remove it yourself. Do not walk on your splint. You should be completely non-weightbearing. Use your crutches as instructed. If the splint becomes wet, dirty, uncomfortable, or loose, please call the Orthopedic Clinic ([phone]) to arrange to be evaluated in the Orthopedic Clinic. Please call the Ortho Clinic if you have any questions or concerns PAIN CONTROL: Elevation is your best friend. Elevate the affected extremity above the level of your heart. Swelling is simply fluid. Elevation will allow the fluid to run down hill, reduce swelling, and decrease pain. The affected extremity should be continuously elevated for the first 2-3 days, with the exception of bathroom, hygiene, etc. You may be prone to swelling for several weeks, or until you return to normal function with your foot/ankle. Ice will help with pain and swelling. Place ice over the front of your ankle. There is abundant padding so it may take a while to feel like its working. Be sure to not let the ice leak into your splint. Medications: 1. Oxycodone (OxyIR) 1-2 tablet(s) orally every 4 hours for pain as needed. Use with Tylenol. Begin tapering OxyIR as soon as possible: reduce from 2 to 1 pills per dose, then spread out the doses over greater time inte rvals, then try to use only for therapy or for comfort while sleeping. Continue to use regular Tylenol until pain subsides. 2. Tylenol (325mg): 3 tablets every 8 hours orally. Regular dosing of Tylenol is an important part of your baseline pain control. Do not taper Tylenol until you have successfully tapered off of regular OxyIR. Do not take more than 3000mg of Tylenol per day. 3. Zofran: 1 tablet orally every 6 hours as needed for nausea related to anesthesia, pain, and narcotic medications. 4. Colace (100mg): take 1-2 tabs twice daily to avoid constipation from OxyIR or other narcotics. OVER THE COUNTER 5. Aspirin (325mg once daily OR 81mg twice daily): Blood clots can be caused by fracture and immobility. Ankle fractures have a low risk of blood clots, but one aspirin tablet per day starting the day after surgery may reduce whatever minimal risk there is even further. The risk of clots goes down significantly after 30 days or as you return to normal mobility. WHEN TO CALL. If you develop any of the following symptoms, please contact the [facility] at [phone] or the Emergency room (after hours): Temperature greater than 101 taken twice, difficulty breathing, bleeding, fever and chills, increased pain unrelieved by pain meds, uncomfortable cast or splint, or any other concerns. Pending Studies at Discharge: No Stand-Alone Forms: [employer], Work/School Release, Smoking Cessation Medications and DC Order Prescriptions: New ondansetron 4 mg tablet,disintegrating 4 mg PO Q6H PRN (Reason: nausea and vomiting) Qty: 10 0RF oxycodone 5 mg tablet 5 - 10 mg PO Q4H MDD 6 tablets PRN (Reason: pain) Qty: 20 0RF Admission Data Admit Date/Time: 09/15/22 00:58 Attending Provider: Stefan Suárez Admit Provider: Stefan Suárez Primary Care Provider: PCP,NEHEMIAH
[2022-09-17] MEDS: SENNA 8.6 MG TAB PO SCH (20:04)
[2022-09-18] MEDS: ACETAMINOPHEN 500 MG TAB PO SCH ×2 (07:01→13:06)
[2022-09-18] MEDS: MULTIVITAMIN TAB PO SCH (08:16)
[2022-09-18] MEDS: oxyCODONE HCL IR 5 MG TAB (IMMEDIATE RELEASE) PO PRN ×2 (08:16→18:00)
[2022-09-18] MEDS: DOCUSATE SODIUM 100 MG CAP PO SCH (08:17)
[2022-09-18] MEDS: ASCORBIC ACID 500 MG TAB PO SCH ×2 (08:17→16:14)
[2022-09-18] MEDS: ASPIRIN 325 MG ECTAB PO SCH (08:17)
--- NOTE | 2022-09-18 14:51 | Orthopedic Progress Note ---
Date of Service September 18, 2022 Assessment & Plan (1) History of open reduction and internal fixation (ORIF) procedure: (2) Fractured tibia and fibula: Plan POD3 ORIF right tibia. Making progress as expected. Stable for discharge. - DVT prophylaxis equals aspirin and early mobilization - Activity: Nonweightbearing to RLE. OK for knee scooter/crutch. - Pain: improving - PT/OT: stairs, dispo planning/teaching Dispo: She will require follow-up at 2 weeks for splint takedown, suture removal, and repeat x-rays. She is from [place], [place]. We can try to establish orthopedic care there or she can return to our clinic for continuing care. Subjective Reports pain is tolerable without IV medications. Tolerating diet. No bowel movement yet but does not think that that will be a problem. Feels that she is ready to go home. Review of Systems All systems reviewed & are unremarkable except as noted in HPI & below. Physical Exam RLE: Splint is clean dry and intact. Active motion to the toes. Sensation grossly intact to light touch. Well perfused. Constitutional WD/WN, vitals as above no acute distress and not intoxicated appearing Respiratory normal respiratory effort; no labored breathing Cardiovascular Extremities: normal capillary refill Results & Data Results & Data Laboratory Results . Diagnostic Findings . PG Care Time/CCT Total # of Minutes Spent Total Time Spent with Patient: Total time spent is greater than 50% in coordination of care (as documented) at patient's floor/unit and/or counseling patient: Coding Level of Care Code 22212 Post Operative Follow-Up Diagnoses History of open reduction and internal fixation (ORIF) procedure Z98.890 Fractured tibia and fibula S82.201A; S82.401A Encounter type: initial encounter Fracture type: closed Laterality: right (2) Fractured tibia and fibula Encounter type: initial encounter Fracture type: closed Laterality: right Qualified Code(s): S82.201A - Unspecified fracture of shaft of right tibia, initial encounter for closed fracture; S82.401A - Unspecified fracture of shaft of right fibula, initial encounter for closed fracture
== END 2022-09-18 19:18 | disposition home or self-care (01) | DRG 494 ==
LOC: ED 22:24 → INTOOBSV 09-15 00:58 → 3N 09-15 00:58